=== PATIENT | male | born 1985 | race African-American/Black ===

== ENCOUNTER 2018-03-12 16:12 | Emergency (ER) | payer MEDICAID ==
[~2018-03-12] VITALS: Ht 182.9 cm; Wt 78.0 kg
[2018-03-12] MEDS ORDERED: IBUPROFEN 600MG TABLET PO ONE (19:15)
[2018-03-12 19:53] VITALS: BP 157/89
== END 2018-03-12 21:52 | disposition home or self-care (01) ==
LOC: ER 16:12
DX: S09.8XXA Other specified injuries of head, initial encounter (principal); H11.31 Conjunctival hemorrhage, right eye; R03.0 Elevated blood-pressure reading, without diagnosis of hypertension; Y04.2XXA Assault by strike against or bumped into by another person, initial encounter; Y93.89 Activity, other specified; Y92.89 Other specified places as the place of occurrence of the external cause; Y99.0 Civilian activity done for income or pay
CPT/HCPCS: 70450; 70486; 99284

== ENCOUNTER 2018-04-14 05:15 | Emergency (ER) | payer MEDICAID ==
[~2018-04-14] VITALS: Ht 182.9 cm; Wt 77.0 kg
[2018-04-14] MEDS ORDERED: KETOROLAC 60MG/2ML VIAL IM ONE (07:30)
[2018-04-14] MEDS ORDERED: TETANUS, DIPHTHERIA, PERTUSSIS VAC/PF 0.5ML (>7YR OLD) IM ONE (07:30)
[2018-04-14 08:24] VITALS: BP 142/81
== END 2018-04-14 10:00 | disposition home or self-care (01) ==
LOC: ER 09:44
DX: M25.512 Pain in left shoulder (principal); F12.90 Cannabis use, unspecified, uncomplicated
CPT/HCPCS: 73030; 90471; 90715; 96372; 99284; J1885; Z7610